=== PATIENT | male | born 1940 | race Caucasian/White ===

== ENCOUNTER 2019-06-13 18:03 | Inpatient (IN) | payer OTHER ==
[~2019-06-13] VITALS: Ht 162.6 cm; Wt 66.3 kg
[2019-06-13 18:04] VITALS: BP 150/84
[2019-06-13 18:48] LABS: ABSOLUTE NEUTROPHILS 7.9 thou/uL (1.4-8.2); BASOPHILS 0.1 % (0.0-2.0); EOSINOPHILS 0.4 % (0.0-3.0); HEMATOCRIT 41.1 % (42.0-52.0); HEMOGLOBIN 13.6 gm/dL (14.0-18.0); LYMPHOCYTES 17.1 % (24.0-44.0); MCH 29.5 pg (26.0-34.0); MCHC 33.2 g/dL (28.0-37.0); MCV 88.8 fL (80.0-100.0); MONOCYTES 4.2 % (1.0-8.0); PLATELET COUNT 206 thou/uL (150-400); POLYS 78.2 % (36.0-66.0); RBC 4.63 mil/uL (4.50-6.00); RDW 14.7 % (10.5-14.5)
[2019-06-13 18:56] LABS: ANION GAP 4 mmol/L (7-16); BUN 10 mg/dL (7-18); CALCIUM 9.2 mg/dL (8.5-10.1); CHLORIDE 96 mmol/L (98-107); CO2 32 mmol/L (21-32); CREATININE 0.9 mg/dL (0.7-1.3); GLUCOSE 292 mg/dL (74-106); POTASSIUM 3.7 mmol/L (3.5-5.1); SODIUM 132 mmol/L (136-145)
[2019-06-13 19:06] LABS: ALBUMIN 4.1 g/dL (3.4-5.0); LIPASE 45 U/L (73-393); SGOT 20 U/L (15-37); SGPT 25 U/L (30-65); TOTAL BILIRUBIN 0.5 mg/dL (<0.1-1.0); TOTAL PROTEIN 8.3 g/dL (6.4-8.2); TROPONIN-I <0.06 ng/mL (<0.06)
[2019-06-13 19:08] LABS: URINE BILIRUBIN NEGATIVE (Negative); URINE BLOOD NEGATIVE (Negative); URINE CLARITY CLEAR; URINE COLOR YELLOW; URINE GLUCOSE-RANDOM* 2+ (Negative); URINE KETONES NEGATIVE (Negative); URINE LEUKOCYTES-REFLEX TRACE (Negative); URINE NITRITE-REFLEX NEGATIVE (Negative); URINE PROTEIN (DIPSTICK) NEGATIVE (Negative)
--- NOTE | 2019-06-13 19:48 | NUR ---
provider speaking to pt and family about results/admission to the hospital
[2019-06-13 20:14] VITALS: BP 133/81
[2019-06-13 21:02] VITALS: BP 146/86
[2019-06-13 21:22] VITALS: BP 147/80
--- NOTE | 2019-06-13 23:44 | NUR ---
ASSUMED CARE OF PT FROM THE ER AT 2100HRS. PT IS AOX4 AND UP AD ROSA. PT IS COLOMBIAN SPEAKING. FAMILY IS AT BED SIDE. PT DENIES NAUSEA AT THIS TIME. PT REPORTS SOME ABDOMINAL PAIN. PT WAS ABLE TO SIGN OWN CONSENT. FAMILY HELPED ANSWER ADMISSION RELATED QUESTIONS. PT AND FAMILY WAS ORIENTED TO THE UNIT AND THE ROOM. VSS AND NO S/S OF AVUTE DISTRESS. WILL CONTINUE TO MONITOR.
[2019-06-14 00:19] VITALS: BP 134/93
[2019-06-14 04:50] LABS: HEMATOCRIT 39.3 % (42.0-52.0); MCH 29.4 pg (26.0-34.0); MCHC 33.1 g/dL (28.0-37.0); MCV 88.6 fL (80.0-100.0); RBC 4.44 mil/uL (4.50-6.00); RDW 14.8 % (10.5-14.5); WBC 7.8 thou/uL (4.0-11.0)
[2019-06-14 04:54] LABS: CALCIUM 8.6 mg/dL (8.5-10.1); CREATININE 0.8 mg/dL (0.7-1.3)
[2019-06-14 05:00] VITALS: BP 124/76
[2019-06-14 05:22] LABS: PROTIME 10.5 Seconds (9.3-11.4)
--- NOTE | 2019-06-14 05:41 | NUR ---
PT HAS HAD LARGE LOOSE BM THIS SHIFT. FAMILY INFORMS THAT PT TOOK LAXATIVE PRIOR TO COMING TO ER. NO COMPLAINTS OF NAUSEA AND VOMITING. PT REPORTS THAT THERE IS NO ABD PAIN UNLESS PALPATED OR MOVED.
[2019-06-14 07:45] VITALS: BP 134/79
--- NOTE | 2019-06-14 10:02 | EKG ---
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: jngum : 1940 Requested By: Isabella Moreau Order Number: [id number] MD: Maxx Montana Measurements Intervals Star Rate: 88 P: 42 SD: 161 QRS: 7 QRSD: 114 T: -28 QT: 347 QTc: 420 Interpretive Statements Sinus rhythm Incomplete right bundle branch block No previous ECG available for comparison Electronically Signed On 06-14-2019 10:01:57 VALIDATION SOFTWARE FACILITATOR by Maxx Montana [email or web address] <ELECTRONICALLY SIGNED> By: Maxx Montana MD, [facility] 06/14/19 1001 1824 1824 Maxx Montana MD, FACC /EPI
[2019-06-14 17:09] VITALS: BP 141/78
--- NOTE | 2019-06-14 18:21 | NUR ---
A/O, calm and cooperative; family bed side; patient complains of pain on touch in right abdomen, but refused pain medication. Dr. Hiram Land ordered: full liquid diet today, clear liquid diet tomorrow; begin bowl prep at noon tomorrow for colonscopy the day after tomorrow. Information has been put into the comment of the diet order, will also pass it to the night nurse; patient afebrile; family reported patient had a BM this AM, small amount, watery. Lab reviewed. Will keep monitoring.
[2019-06-14 19:14] VITALS: BP 142/79
--- NOTE | 2019-06-15 04:30 | NUR ---
ASSUMED CARE OF PT AT 1900HRS. PT IS AOX4 BUT BENGAL[place] SPEAKING. PT IS UP AD ROSA. FAMILY IS AT BEDSIDE. PT DENIES NAUSEA. PT REPORTS TENDERNESS TO TOUCH IN THE RLQ. PT PLACED ON CLEAR LIQUID PER MD REQUEST. BOWEL PREP TO BE INITIATED AT 1200HRS. PT WAS ABLE TO SLEEP PART OF THE SHIFT. VSS AND NO S/S OF ACUTE DISTRESS. WILL CONTINUE TO MONITOR.
[2019-06-15 05:36] LABS: GLYCOHEMOGLOBIN (HGB A1C) 7.2 % (4.8-5.6)
[2019-06-15 08:13] VITALS: BP 141/81
[2019-06-15 15:30] VITALS: BP 159/91
--- NOTE | 2019-06-15 15:52 | NUR ---
PT A&OX4, VSS, DENIES AT THIS TIME. NO C/O N/V. PATIENT HAS COMPLETED BOWEL PREP. FAMILY ASSITING PATIENT WITH NEEDS THROUGH OUT DAY. FAMILY NOTIFIES NURSE WITH ANY NEEDS. WILL CONTINUE TO MONITOR.
[2019-06-15 19:24] VITALS: BP 172/72
[2019-06-15 21:15] VITALS: BP 152/77
--- NOTE | 2019-06-16 02:46 | NUR ---
ASSUMED CARE AROUND 1915. AXOX3. FAMILY AT BEDSIDE AT ALL TIMES. COLON PREP COMPLETED AND VERIFIED WITH CLEAR STOOL. KEPT NPO AFTER MN FOR COLONOSCOPY IN AM. NO S/S ACUTE DISTRESS NOTED OR REPORTED AT THIS TIME. WILL CONT TO MONITOR FOR ANY CHANGES IN CONDITION.
[2019-06-16 03:38] VITALS: BP 140/69
[2019-06-16 08:13] VITALS: BP 148/84
[2019-06-16 15:16] VITALS: BP 133/76
[2019-06-16 15:21] VITALS: BP 173/85
--- NOTE | 2019-06-16 16:00 | NUR ---
ASSUMED CARE THIS AM, AWAKE AND ALERT WITH FAMILY AT BEDSIDE. 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 FAMILY VERY FLUENT IN WELSH AND ICEL[place]IC. NO COMPLAINTS OF PAIN OR NAUSEA OR VOMITING. UP AD ROSA TO BATHROOM. NPO FOR COLONOSCOPY SCHEDULED TODAY, THEN CLEAR LIQUIDS AFTER PROCEDURE AND NPO AGAIN AFTER MIDNIGHT IN PREPARATION FOR SURGERY TOMORROW. LAPROSCOPIC ASSISTED PARTIAL COLECTOMY, POSSIBLE COLOSTOMY OR ILEOSTOMY, POSSIBLE OPEN.
--- NOTE | 2019-06-16 16:20 | NUR ---
PT ADMITTED RELATED TO ABD MASS; BOWEL OBSTRUCTION. CM REVIEWED CHART AND SPOKE WITH CARE TEAM. CM MET WITH PT AT BEDSIDE THIS DAY. PT IS A&O X4 BUT ONLY CITIZEN OF [place] SPEAKING. PT'S FAMILY WERE AT BEDSIDE AND THEY INDICATED THAT THEY/HE WERE COMFORTABLE WITH THEM INTERPRETING. IT WAS INDICATED THAT PT RESIDES IN A DUPLEX WITH NO STEPS WITH HIS , DTR, AND NIECE. 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 THEY INDICATED NO DME, HH, OR PCP. THEY INDICATED THAT THEY ANTICPATE PT RETURNING HOME WITH FAMILY ONCE MEDICALLY STABLE. THEY ARE RECEPTIVE TO [facility] VISITING AND A [facility] PACKET FOR FOLLOW UP CARES UPON DC. CARE TEAM INDIATED THAT PT IS TO HAVE SURGERY TOMORROW. CM TO FOLLOW INDICATED WITH DC PLANNING.
[2019-06-16 19:16] VITALS: BP 153/79
--- NOTE | 2019-06-17 01:40 | NUR ---
PT AOX4. PT HAS FAMILY AT BEDSIDE FOR SUPPORT AND TRANSLATION. PT PREFERS FAMILY TO TRANSLATE. PT REPORTS 5/10 PAIN IN BACK. PRN MORPHINE GIVEN. PT TOLERATING CLEAR LIQUID DIET WITHOUT ISSUE. NO REPORTS OF NAUSEA OR VOMITING. PT NPO AT MIDNIGHT. PT IN SUPINE POSITION WITH HOB ELEVATED. NO REPORTS OF SOA. ENCOURAGED TO NOTIFY STAFF FOR ALL NEEDS. BED AT LOWEST POSITION, CALL LIGHT WITHIN REACH, BED ALARM ON. WILL CONTINUE TO MONITOR.
[2019-06-17 05:56] LABS: HEMATOCRIT 34.7 % (42.0-52.0); HEMOGLOBIN 11.5 gm/dL (14.0-18.0); MCH 29.5 pg (26.0-34.0); MCHC 33.2 g/dL (28.0-37.0); MCV 88.9 fL (80.0-100.0); RBC 3.9 mil/uL (4.50-6.00); RDW 14.7 % (10.5-14.5); WBC 7.6 thou/uL (4.0-11.0)
[2019-06-17 06:05] LABS: CALCIUM 8.4 mg/dL (8.5-10.1); CREATININE 0.9 mg/dL (0.7-1.3); PHOSPHORUS 3.4 mg/dL (2.5-4.9); POTASSIUM 3.9 mmol/L (3.5-5.1)
--- NOTE | 2019-06-17 13:15 | P ---
[facility] [place] [place] [address] PROCEDURE REPORT Name: JORGE LUIS THORPE Room #: 455-P [facility] IN M.R.#: [id number] Admission: 06/13/19 Attend Phys: Elizabeth Fitch Discharge: Date of : 44 Report #: [id number] THIS REPORT FOR: //name// CC: FAM physician/PCP Elizabeth Pacheco MD BRIEF HISTORY: The patient is a 78-year-old male who presented with abdominal pain and CT reveals evidence of an apple-core type lesion at the level of splenic flexure. PREOPERATIVE DIAGNOSIS: Abnormal CT of colon, possible neoplasm. POSTOPERATIVE DIAGNOSES: 1. Partially obstructing mass lesion colon, 70 cm. 2. Moderate sigmoid diverticulosis coli. MEDICATIONS: Deep sedation with propofol per anesthesia. SPECIMEN: Biopsies of colonic mass. ESTIMATED BLOOD LOSS: 3 mL. PROCEDURE: Colonoscopy to obstructing mass lesion with biopsy and tattooing of the distal aspect of the lesion. FINDINGS: Prior to propofol sedation, procedure of colonoscopy discussed with the patient. Actually, the patient does not speak Hong Konger, but family was present who does speak Hong Konger, is familiar with his history. After discussion, the patient and family indicate they had no questions and desires to proceed. DESCRIPTION OF PROCEDURE: With the patient in left lateral decubitus position, digital examination was completed, which revealed no abnormalities. Subsequently, the Olympus video colonoscope was introduced in the rectum, advanced under direct vision. Scope was advanced easily to the level of about 70 cm. At that point, a typical appearing apple-core type lesion was seen. It had a malignant appearance. There was no bleeding, but the lesion was friable. It involved the entire circumference of the colon at that level. There was a central channel through the apple-core lesion. The tip of the scope was advanced into the channel, but it was much too tight to allow forward advancement of the scope. We could not pass beyond the lesion. Multiple biopsies were obtained. It was noted that there was liquidy yellowish stool material coming through the channel, endoscopy was partially obstructed not completely obstructed. Multiple biopsies were obtained. We also placed 2 Devika ink injections just distal to the mass lesion. At that point, the scope was slowly withdrawn and careful circumferential views were obtained. The prep was good. The mucosa, otherwise, was within normal limits, normal vascular pattern, [address] [address] PROCEDURE REPORT Name: THORPEJORGE LUIS Room #: 455-P [facility] IN M.R.#: [id number] Admission: 06/13/19 Attend Phys: Elizabeth Fitch Discharge: Date of : 44 Report #: [id number] normal light reflex. No additional polypoid or mass lesions were seen. In the sigmoid colon, he was noted to have moderately severe diverticular disease without endoscopic evidence of diverticulitis. Scope was withdrawn in the rectum, no abnormalities were seen. Upon retroflexion, no abnormalities were seen. Scope was withdrawn. The patient tolerated the procedure well. DISPOSITION: The patient with apple-core lesion, which is highly suggestive of a primary colon cancer. Multiple biopsies were obtained. We will follow up on the pathology. However, I believe plans are in progress for resection of this lesion. We could not cross the lesion. Therefore, after he recovers from surgery, consider a followup colonoscopy to evaluate the proximal colon. <ELECTRONICALLY SIGNED> By: Roberto Rosario MD 06/17/19 1315 1151 1304 Roberto Rosario MD /nt
[2019-06-17 14:00] VITALS: BP 164/85
[2019-06-17 14:30] VITALS: BP 147/92
[2019-06-17 15:00] VITALS: BP 169/90
--- NOTE | 2019-06-17 15:35 | NUR ---
PT HAD SURGERY THIS DAY. CARE TEAM INDICATED MAY BE READY FOR DC SUNDAY OR SUNDAY DEPENDEING ON PROGRESS. CM TO FOLLOW INDICATED WITH DC PLANNING. [facility] WAS TO SEE PT TO SEE IF THE WOULD BE ELIGIABE FOR ANY FINIANCIAL ASSISTANCE PROGRAMS.
[2019-06-17 16:00] VITALS: BP 148/87
[2019-06-17 17:00] VITALS: BP 133/86
--- NOTE | 2019-06-17 17:05 | NUR ---
ASSUMED CARE OF PATIENT APPROX 1400. PATIENT SLEEPING AND FAMILY AT BEDSIDE. NO SIGNS OF DISTRESS. ASSESSMENT COMPLETED. PATIENT VOMITED WATER AND REMAINS ON CLEAR LIQUIDS. HELD MEDICATION D/T VOMITING. 4 INCH INCISION AT UMBILICUS AND TWO LAP SITES ON RIGHT SIDE OF INCISION, ALL SECURED WITH DERMABOND, C/D/I. PATIENT STATES HE ISNT IN PAIN AT THIS TIME. WILL CONTINUE TO MONITOR.
[2019-06-17 20:15] VITALS: BP 128/53
[2019-06-18 00:36] VITALS: BP 99/86
--- NOTE | 2019-06-18 05:00 | NUR ---
Assessments completed. pt a&ox4. daughter at bedside and translating for pt. pt had no c/o overnight. pain was controlled with scheduled tylenol. ling in place and patent. v/s stable. no s/s of distress. will cont to monitor
[2019-06-18 05:07] VITALS: BP 113/56
[2019-06-18 06:34] LABS: HEMATOCRIT 35.3 % (42.0-52.0); HEMOGLOBIN 11.8 gm/dL (14.0-18.0); MCH 29.6 pg (26.0-34.0); MCHC 33.4 g/dL (28.0-37.0); MCV 88.6 fL (80.0-100.0); RBC 3.99 mil/uL (4.50-6.00); RDW 14.5 % (10.5-14.5); WBC 10.8 thou/uL (4.0-11.0)
[2019-06-18 06:49] LABS: ALBUMIN 2.8 g/dL (3.4-5.0); CALCIUM 8.6 mg/dL (8.5-10.1); MAGNESIUM 1.9 mg/dL (1.8-2.4); PHOSPHORUS 3.6 mg/dL (2.5-4.9); POTASSIUM 4.1 mmol/L (3.5-5.1); TOTAL BILIRUBIN 0.5 mg/dL (<0.1-1.0); TOTAL PROTEIN 6.9 g/dL (6.4-8.2)
[2019-06-18 07:38] LABS: CREATININE 0.9 mg/dL (0.7-1.3)
[2019-06-18 08:34] VITALS: BP 96/61
--- NOTE | 2019-06-18 09:40 | HC ---
[facility] [place] [address] CONSULTATION Name: JORGE LUIS THORPE Room #: 455-P [facility] IN M.R.#: [id number] Admission: 06/13/19 Attend Phys: Elizabeth Fitch Discharge: Date of : 44 Report #: [id number] THIS REPORT FOR: //name// CC: [facility] physician/PCP Elizabeth Fitch DATE OF SERVICE: 06/14/2019 This is a GI consult. HISTORY OF PRESENT ILLNESS: The patient is a pleasant 78-year-old male who speaks no Taiwanese. History was obtained by his grandson in the room who speaks fluent Taiwanese and Swedish. Apparently, his grandfather began having pain in the left upper quadrant over a year and a half ago and was evaluated in [facility] without receiving a colonoscopy. He has never had a colonoscopy. There was a question as to whether or not he had a cancer in his kidneys and had kidney biopsy. The details of that are not available to me. His medical history is outlined in the chart. He did present with increasing abdominal distention, but no nausea or vomiting and left upper quadrant abdominal pain as well as diffuse abdominal pain. He has also had constipation, but no rectal bleeding. His last BM was approximately 3-4 days ago. MEDICAL HISTORY: Notable for cholecystectomy and diabetes per the chart. ALLERGIES: He is allergic to no medications. FAMILY HISTORY AND SOCIAL HISTORY: Noncontributory. REVIEW OF SYSTEMS: Otherwise negative for head, eyes, ears, nose or throat complaints. Denies chest pain, chest palpitation, chest pressure, cough, shortness of breath, wheezing, genitourinary, musculoskeletal or neuropsychiatric complaints. PHYSICAL EXAMINATION: VITAL SIGNS: The patient is afebrile. Vital signs stable. HEENT: Nonicteric. NECK: No JVD, thyromegaly or bruits. CARDIOVASCULAR: Regular. LUNGS: Clear anteriorly. ABDOMEN: Soft, nondistended with some mild tenderness in the left upper quadrant. No rebound or guarding. EXTREMITIES: No clubbing, cyanosis or edema. NEUROLOGIC: Deferred. RECTAL: Deferred. PERTINENT LABORATORY DATA: Include sodium 132, potassium 3.7, chloride 96, [facility] [address] [place] [address] CONSULTATION Name: JORGE LUIS THORPE Room #: 455-P [facility] IN M.R.#: [id number] Admission: 06/13/19 Attend Phys: Elizabeth Fitch Discharge: Date of : 44 Report #: [id number] venous bicarbonate 32, BUN 10, creatinine 0.9, glucose 292. Liver tests were normal. Lipase 45. Hemoglobin 13.6, normal MCV and RDW. White count 10. CT suggests high-grade obstruction at the splenic flexure or distal transverse colon by a possible mass with apple core features. No evidence of distant metastasis. In summary, the patient has colonic obstruction from a suspected splenic flexure colonic mass. We will proceed with liquid diet only and attempt at a colon prep for colonoscopy on Sunday. I appreciate the opportunity to participate in his care. <ELECTRONICALLY SIGNED> By: Cale Garcia MD 06/18/19 0940 1138 1226 Hiram Land MD /nt
--- NOTE | 2019-06-18 11:02 | NUR ---
Assess due to npo/clear liquids x 5 days. Admit with colon mass, s/p lap partial colectomy, ALONZO on 06/17. Hx diabetes, A1C 7.2. Pt romansh speaking, family helps to interpret basic questions. No wt loss, and appetite has been decreased ~ 2 weeks due to distension and pain after he was eating. Otherwise ate very well prior. On ivf. Await for timely ability diet to advance and determine tolerance. Low nutrition risk, but follow up 06/20 for diet advance
--- NOTE | 2019-06-18 11:07 | PATH ---
[facility] [place] [address] PATHOLOGY RPT PROCEDURE Name: SHIRLEY MONTESL Room #: 455-P ADM IN M.R.#: [id number] Admission: 06/13/19 Date of : 44 Discharge: Report #: [id number] Path Case #: [id number] [facility] Accession Number: [id number] . 01 Material submitted: . colon - COLON MASS AT 70CM . 01 Clinical history: . Pre-OP DX: Abdominal mass, abdominal pain Post-OP DX: Partially obstructing colon mass and diverticulosis . 02 Diagnosis: Large intestine, colon mass at 70 cm, endoscopic biopsy: - INVASIVE MODERATELY DIFFERENTIATED COLONIC ADENOCARCINOMA. 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 02 Comment: Hydraulic Specialist slide of this case was co-reviewed by Dr. Gonzalo Powers who concurs with my diagnosis. Findings of this case are discussed with Dr. Roberto Rosario at approximately 1:40 p.m. on 06/17/19. 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 02 Electronically signed: . Tala Pimentel MD, Pathologist NPI- [id number] . 01 Gross description: . Received in formalin labeled "Jorge Luis Montes, colon mass at 70 cm," are 4 segments of sargent soft tissue measuring 1.1 x 0.8 x 0.3 cm in aggregate dimensions and ranging from 0.4 to 0.5 cm in maximum dimension. The specimen is submitted entirely in cassette A1. (TSD; 06/16/2019) TOB/TOB 06/16/2019 2225 Local . 02 Pathologist provided ICD-10: C18.9 . 02 CPT . 688382 Specimen Comment: A courtesy copy of this report has been sent to [phone], [phone] Specimen Comment: [id number] Specimen Comment: Report sent to / DR GONZALEZ Performed at: [address], [place] [id number] [place] [address] PATHOLOGY RPT PROCEDURE Name: JORGE LUIS MONTES Room #: 455-P ADM IN M.R.#: [id number] Admission: 06/13/19 Date of : 44 Discharge: Report #: [id number] Path Case #: [id number] MD Jose Bauer MD Phone: [phone] Performed at: [address] [id number] MD Tala Pimentel MD Phone: [phone]
[2019-06-18 11:35] VITALS: BP 106/52
--- NOTE | 2019-06-18 13:46 | NUR ---
ASSUMED CARE AROUND 0700. AXOX3. SURGICAL SITE INTACT. MURILLO INTACT. DIET ADVANCED TO CLEAR LIQUIDS BY AT BEDSIDE. NO S/S ACUTE DISTRESS NOTED OR REPORTED AT THIS TIME. AMBLUALTED IN HALLWAY WITH STAFF. WILL CONT TO MONITOR FOR ANY CHANGES IN CONDITION.
[2019-06-18 15:02] VITALS: BP 128/72
[2019-06-18 20:15] VITALS: BP 122/76
--- NOTE | 2019-06-19 05:30 | NUR ---
no changes overnight. pt slept well and content with care. scheduled tylenol given for mild pain. lab/incision sites, c/d/i. v/s stable. ling inplace and patent. no s/s of distress. daughter stayed the night. will cont to monitor
[2019-06-19 06:33] LABS: ALBUMIN 2.7 g/dL (3.4-5.0); CALCIUM 8.3 mg/dL (8.5-10.1); CREATININE 0.8 mg/dL (0.7-1.3); MAGNESIUM 2.1 mg/dL (1.8-2.4); POTASSIUM 4.3 mmol/L (3.5-5.1); TOTAL BILIRUBIN 0.4 mg/dL (<0.1-1.0); TOTAL PROTEIN 5.9 g/dL (6.4-8.2)
[2019-06-19 07:11] VITALS: BP 130/88
--- NOTE | 2019-06-19 14:07 | NUR ---
Received awake on bed. Due medications given as prescribed, able to swallow meds w/o difficulty. A+O. With relative at bedisde. On room air. On clear liquid diet- tolerating well, no nausea, no vomiting and no abdominal pain noted. With ling in place- draining well, output measured and recorded accordingly. Post op day 2, surgical wound with dermabond, C/D/I, no signs and symptoms of infection noted. With NS at 75cc/hr, infusing well at R hand; with SL at L hand. Assisted in ADLS. Falls bundle in place. On blood sugar monitoring- taken and recorded accordingly. Pt seen by Dr Fitch- PO diet c/o surgeon- Dr Jose informed, for HH evaluation- SW informed. Pt seen by Dr Jose- informed him that pt passed gas already, pt may have full liquids then advanced as tolerated. Ling discontinued as ordered by Dr Jose. Pt tolerated full liquid diet for lunch- advanced diet to soft diet for dinner.
[2019-06-19 17:11] VITALS: BP 143/77
[2019-06-19 21:31] VITALS: BP 147/81
--- NOTE | 2019-06-20 05:01 | NUR ---
Assessments completed. pt a&ox4. no changes overnight. no c/o of pain. pt didn't want to be woken up at midnight for scheduled tylenol. lab/surgical sites clean, dry and intact with dermaband in place. v/s stable. no s/s of distress. will cont to monitor
[2019-06-20 05:15] LABS: HEMATOCRIT 28.7 % (42.0-52.0); MCH 29.9 pg (26.0-34.0); MCHC 33.5 g/dL (28.0-37.0); MCV 89.3 fL (80.0-100.0); RBC 3.22 mil/uL (4.50-6.00); RDW 14.2 % (10.5-14.5); WBC 5.8 thou/uL (4.0-11.0)
[2019-06-20 05:18] LABS: HEMOGLOBIN 9.6 gm/dL (14.0-18.0)
[2019-06-20 05:32] LABS: CALCIUM 7.4 mg/dL (8.5-10.1); CREATININE 0.6 mg/dL (0.7-1.3); PHOSPHORUS 2.2 mg/dL (2.5-4.9); POTASSIUM 3.4 mmol/L (3.5-5.1)
[2019-06-20 08:50] VITALS: BP 122/49
[2019-06-20] MEDS ORDERED: PEPCID20 MG PO (09:29)
[2019-06-20] MEDS ORDERED: ULTRAM50 MG PO (09:30)
[2019-06-20] MEDS ORDERED: NORVASC 2.5 MG2.5 M1 PO (09:33)
--- NOTE | 2019-06-20 12:37 | NUR ---
CARE TEAM INDICATED THAT PT IS MEDICALLY STABLE TO DC HOME THIS DAY. CM PROVIDED [facility]. PT IS TO DISHCARGE HOME WITH NO NEEDS. NO OTHER CM INTERVENTION INDICATED. CASE CLOSED.
[2019-06-20 15:42] VITALS: BP 130/75
--- NOTE | 2019-06-20 17:21 | NUR ---
Received awake on bed. Due medications given as prescribed, able to swallow meds w/o difficulty. A+O. On room air. With family at bedside. On blood sugar monitoring, taken and recorded accordingly. Assisted in ADLs. Up ad bridgette. No complaints of pain. Pt on soft diet, tolerating well; no nausea, no vomiting and no abdominal pain- asked Dr Jose if pt can be progressed to regular diet- may progress diet- order made. Pt still has not have a bowel movement today, pt passing gas and burping. With with NS at 75cc/hr, infusing well at R hand, with SL at L hand. With post op surgical sites, C/D/I, no signs of infection noted. Pt seen by Dr Fitch this AM, pending discharge orders made- if ok with Dr Jose, pt seen by Dr Jose- pt to stay 1 more day or unit able to make a bowel movement.
[2019-06-20 19:39] VITALS: BP 158/94
--- NOTE | 2019-06-21 03:56 | NUR ---
Pt. rested quietly during the night when checked on during frequent rounds. He offers no c/o pain or nausea. Lapsites with dermabond to abdomen are dry and intact. Daughter at the bedside all night.
[2019-06-21 05:44] LABS: HEMOGLOBIN 10.3 gm/dL (14.0-18.0); MCH 29.5 pg (26.0-34.0); MCHC 33.2 g/dL (28.0-37.0); MCV 88.8 fL (80.0-100.0); RBC 3.49 mil/uL (4.50-6.00); RDW 14.2 % (10.5-14.5); WBC 5.2 thou/uL (4.0-11.0)
[2019-06-21 06:08] LABS: ALBUMIN 2.6 g/dL (3.4-5.0); CALCIUM 9.1 mg/dL (8.5-10.1); CREATININE 0.8 mg/dL (0.7-1.3); PHOSPHORUS 3.9 mg/dL (2.5-4.9); POTASSIUM 3.8 mmol/L (3.5-5.1)
[2019-06-21 08:14] VITALS: BP 148/84
[2019-06-21 12:16] VITALS: BP 149/94
[2019-06-21 12:32] VITALS: BP 149/94
--- NOTE | 2019-06-21 15:50 | NUR ---
Received awake on bed. Due medications given as prescribed, able to swallow meds w/o difficulty. A+Ox4. With relatives at bedside. On room air. Vital signs stable. On blood sugar monitoring, taken and recorded accordingly- with sliding scale insulin- given as prescribed. On regular diet- tolerating well; no nausea, no vomiting and no abdominal pain. Able to have a bowel movement yesterday. Pt seen by Dr Fitch today, still pending discharge; Dr Jose informed that pt had a bowel movement yesterday and asked if pt is ok to discharge from his standpoint- as per Dr Jose, pt can go home and to follow up after 2 weeks. Discharge instructions, prescription and follow up schedule given and instructed to patient together with his son and . IV discontinued. Pt brought down via wheelchair with his personal belongings.
--- NOTE | 2019-06-24 16:06 | PATH ---
[facility] [place] [address] PATHOLOGY RPT PROCEDURE Name: SHIRLEY MONTESL Room #: 455-P DIS IN M.R.#: [id number] Admission: 06/13/19 Date of : 44 Discharge: 06/21/19 Report #: [id number] Path Case #: [id number] [facility] Accession Number: [id number] . 01 Material submitted: . colon - TRANSVERSE COLON SPLENIC FLEXURE. Modifiers: transverse . 01 Clinical history: . colon obstruction . 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 - TUMOR INVADES THROUGH MUSCULARIS PROPRIA INTO SUBSEROSA (PLEASE SEE SYNOPTIC REPORT ASSEMBLED BELOW). - Margins of resection free of malignancy; closest mucosal margin is 3.5 cm and closest mesenteric margin is 2.0 cm. - Twelve reactive lymph nodes without any evidence of malignancy (0/12). . Omentum, omentectomy: - 14.5 cm of omentum with reactive changes. - Negative for malignancy. . 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 . Surgical Pathology Cancer Case Summary . Protocol posting date: December 2016 . . COLON AND RECTUM: Resection, Including Transanal Disk Excision of Rectal Neoplasms . Procedure ___ Transverse hemicolectomy . Tumor Site ___ Transverse colon . Tumor Size Greatest dimension (centimeters): 5.2 cm . Macroscopic Tumor Perforation ___ Not identified . Histologic Type [facility] [address] [place] [address] PATHOLOGY RPT PROCEDURE Name: SHIRLEY MONTESL Room #: 455-P [facility] IN M.R.#: [id number] Admission: 06/13/19 Date of : 44 Discharge: 06/21/19 Report #: [id number] Path Case #: [id number] ___ Adenocarcinoma . Histologic Grade ___ G2: Moderately differentiated . Tumor Extension ___ Tumor invades through the muscularis propria into pericolorectal tissue . Margins ___ All margins are uninvolved by invasive carcinoma, high-grade dysplasia, intramucosal adenocarcinoma, and adenoma Margins examined: Distance of invasive carcinoma from closest margin: 3.5 cm Specify closest margin: closest mucosal margin Distance of invasive carcinoma from closest margin: 2.0 cm Specify closest margin: meseteric margin . Treatment Effect ___ No known presurgical therapy . Lymphovascular Invasion ___ Not identified . Perineural Invasion ___ Not identified . Tumor Deposits ___ Not identified . Regional Lymph Nodes . Number of Lymph Nodes Involved: 0 . Number of Lymph Nodes Examined: 12 Pathologic Stage Classification (pTNM, AJCC 8th Edition) Note: Reporting of pT, pN, and (when applicable) pM categories is based on information available to the pathologist at the time the report is issued. . . Primary Tumor (pT) ___ pT3:Tumor invades through the muscularis propria into pericolorectal tissues . Regional Lymph Nodes (pN) ___ pN0:No regional lymph node metastasis . Distant Metastasis (pM) (required only if confirmed pathologically in this [facility] [address] [place] [address] PATHOLOGY RPT PROCEDURE Name: MAURILIOJORGE LUIS Room #: 455-P [facility] IN Angela.R.#: [id number] Admission: 06/13/19 Date of : 44 Discharge: 06/21/19 Report #: [id number] Path Case #: [id number] case) ___ pMx:Not known [facility] 06/19/2019 1500 Local . 02 Addendum: . Per [facility] Cancer Committee protocol, mismatch repair (MMR) protein immunohistochemical staining was performed. . Reason for testing: To evaluate for evidence of defective mismatch repair proteins. Method: Immunohistochemical staining for the presence or absence of protein expression of one or more of the following MMR protein markers: MLH1, MSH2, MSH6 and PMS2 on block A4. Tumor type: Invasive adenocarcinoma with focal mucinous features . Results: MLH1 - Weak and patchy MSH2 - Preserved MSH6 - Preserved PMS2 - Lost . Mismatch Repair Status: MMR Deficient (MMR-D) . Interpretation: (MMR-D) The absence of expression for one or more MMR protein markers within tumor cells is suggestive for defective mismatch repair function often associated with microsatellite instability (MSI). MMR testing by IHC is a screening test and MMR-D cases require confirmation and additional workup by molecular based methodologies. Suggest clinical correlation and follow up to establish the need for potential genetic testing, recurrence risk evaluation and treatment options. . These test results are designed for screening purposes only and are useful tools in identifying cancer patients that are more likely to have Davis syndrome related diagnoses. Tests should be interpreted in the context of clinical findings, family history and laboratory data. Abnormal IHC results for MMR protein expression are not considered diagnostic for Davis Syndrome. (IUV/06/24/2019) . Professional Services Performed by [facility] at [facility], [address] [place] [address]. [address] . Technical component of MMR IHC testing performed at [facility], [address] [place] [address], [address], [place] [address]. IZV/06/24/2019 Addendum Electronically Signed by Tala Pimentel MD, Pathologist . [address] [address] PATHOLOGY RPT PROCEDURE Name: MONTESJORGE LUIS Room #: 455-P DIS IN M.R.#: [id number] Admission: 06/13/19 Date of : 44 Discharge: 06/21/19 Report #: [id number] Path Case #: [id number] Electronically signed: . Tala Pimentel MD, Pathologist NPI- [id number] . 01 Gross description: . The specimen is received in formalin, labeled "Montes, Jorge Luis, transverse colon and splenic flexure" and consists of a previously opened segment of colon measuring 21.0 cm in length and up to 6.0 cm in diameter with mesocolic fat up to 7.5 cm and omentum (14.5 x 9.4 cm). Both margins have a staple line. The serosa and has black tattoo ink correlating to a large mucoid/ulcerated/fungating friable pink-sargent mass measuring 5.2 x 3.0 cm that is 3.5 cm from one margin, greater than 10 cm from the opposite margin, and 2.0 cm from the mesenteric margin. The mesenteric margin is inked blue and the serosa black. Sectioning reveals the mass obliterates the muscular wall with extension into the mesocolic tissue. The mass does not extend into the adjacent omentum grossly. No additional polyps or mass lesions are identified. The omentum reveals no gross lesions. The mesocolic tissue reveals multiple lymph nodes measuring up to 1.5 cm showing pink-sargent cut surfaces. [employer] sections are submitted as follows: . A1: Margin nearest tumor A2: Margin furthest tumor A3: Mesenteric margin, perpendicular A4-A5: Mass deepest possible invasion A6: Mass to serosa A7: Mass to mucosa nearest margin A8: Mass to mucosa furthest margin A9: Omentum A10: 2 bisected lymph node candidates, one inked blue A11: 2 adjacent lymph nodes, bisected A12: One trisected lymph node A13: One trisected lymph node A14: One bisected lymph node candidate A15-A16: 1 serially sectioned lymph node A17: One serially sectioned lymph node A18: One bisected (inked black) and 2 intact lymph nodes (SDY; 06/18/2019) SYU/SYU 06/18/2019 1249 Local . 02 Pathologist provided ICD-10: C18.4 . 02 CPT . 452523, [id number], [id number], [id number] Specimen Comment: A courtesy copy of this report has been sent to [phone], [phone] Specimen Comment: [id number] [facility] [address] [place] [address] PATHOLOGY RPT PROCEDURE Name: JORGE LUIS MONTES Room #: 455-P DIS IN M.R.#: [id number] Admission: 06/13/19 Date of : 44 Discharge: 06/21/19 Report #: [id number] Path Case #: [id number] Specimen Comment: Report sent to and Performed at: 01 [facility] [address], [place], [place] [id number] MD Jose Bauer MD Phone: [phone] Performed at: 02 [facility] [place] [address] [place], [place] [id number] MD Tala Pimentel MD Phone: [phone]
== END 2019-06-21 14:03 | disposition home or self-care (01) | DRG 330 ==
LOC: ER 18:03 → 4W 19:52 → EROBS 19:52 → 4W 21:02
PROVIDERS: Nurse Practitioner Family; Surgery; ADMIT Hospitalist
PROC: 0DBE8ZX Excision of Large Intestine, Via Natural or Artificial Opening Endoscopic, Diagnostic (ICD-10-PCS; principal; 2019-06-16)
PROC: 0DBL0ZZ Excision of Transverse Colon, Open Approach (ICD-10-PCS; 2019-06-17)
PROC: 0DNU4ZZ Release Omentum, Percutaneous Endoscopic Approach (ICD-10-PCS; 2019-06-17)
DX: C18.4 Malignant neoplasm of transverse colon (principal); K56.600 Partial intestinal obstruction, unspecified as to cause; E87.1 Hypo-osmolality and hyponatremia; K40.30 Unilateral inguinal hernia, with obstruction, without gangrene, not specified as recurrent; E11.9 Type 2 diabetes mellitus without complications; K57.30 Diverticulosis of large intestine without perforation or abscess without bleeding; N40.0 Benign prostatic hyperplasia without lower urinary tract symptoms; I10 Essential (primary) hypertension; Z90.49 Acquired absence of other specified parts of digestive tract; Z87.891 Personal history of nicotine dependence
CPT/HCPCS: 10040; 10045; 50010; 50101; 50249; 50386; 50455; 50555; 50558; 51489; 51708; 51712; 52265; 52266; 53307; 53310; 54118; 56462; 56524; 56525; 56526; 56529; 57092; 62110; 62900; 64039; 70005